=== PATIENT | female | born 1935 | race Caucasian/White ===

== ENCOUNTER 2016-10-13 12:50 | Emergency (ER) | payer MEDICARE, OTHER ==
[2016-10-13] MEDS ORDERED: SUBLIMAZE 100 MCG/2 ML IV ONE ×2 (13:14→13:44)
[2016-10-13] MEDS ORDERED: SUBLIMAZE 100 MCG/2 ML ONE ×2 (13:18→13:47)
--- NOTE | 2016-10-13 13:20 | ERPHSYRPT ---
- History of Present Illness Time Seen by Provider: 10/13/16 13:11 Source: patient Patient Subjective Stated Complaint: PT STATES SHE FELL AT WORK AND INJURED HER LEFT SHOULDER DENIES HITTING HER HEAD COMPLAINS OF LEFT SHOUDLER PAIN Triage Nursing Assessment: PT ALERT WARM AND DRY RESP EASY NON LABORED PULSES NOTED TO LEFT EXTREMITY POOR ROM IN LEFT EXTREMITY. Physician History: CC: left shoulder injury Hx: Patient was working at [employer] this AM and slipped and fell. She hurt left shoulder. No other injuries. No head injury. No neck or back pain. No leg injury. She has moderately severe pain in the left shoulder. Last ate breakfast at 7AM and cappachino at 11AM. Occurred: just prior to arrival Extremities Pain Location: shoulder: left Allergies/Adverse Reactions: Sulfa (Sulfonamide Antibiotics) [Sulfa(Sulfonamide Antibiotics)] Allergy ( Unknown, Verified 05/11/12 14:19) Home Medications: Lisinopril 20 mg PO DAILY 03/19/14 [History] Hx Tetanus, Diphtheria Vaccination/Date Given: Yes Hx Influenza Vaccination/Date Given: No Hx Pneumococcal Vaccination/Date Given: No Immunizations Up to Date: Yes - Review of Systems Constitutional: No Symptoms Eyes: No Symptoms Ears, Nose, & Throat: No Symptoms Respiratory: No Dyspnea Cardiac: No Chest Pain Abdominal/Gastrointestinal: No Abdominal Pain Musculoskeletal: Injury (left shoulder), No Back Pain, No Neck Pain Skin: No Rash Neurological: No Focal Weakness, No Headache, No Parasthesia All Other Systems: Reviewed and Negative - Past Medical History Pertinent Past Medical History: No Neurological History: No Pertinent History ENT History: Cataracts Cardiac History: No Pertinent History, Hypertension Respiratory History: No Pertinent History Endocrine Medical History: No Pertinent History Musculoskeletal History: No Pertinent History GI Medical History: No Pertinent History History: No Pertinent History Psycho-Social History: No Pertinent History Female Reproductive Disorders: Other Other Medical History: D&C 1960's after a childbirth,issa. cataract - Past Surgical History Past Surgical History: Yes Neuro Surgical History: No Pertinent History Cardiac: No Pertinent History Respiratory: No Pertinent History Gastrointestinal: No Pertinent History Genitourinary: No Pertinent History Musculoskeletal: No Pertinent History Female Surgical History: No Pertinent History Other Surgical History: D&C, normal childbirth x two - Social History Smoking Status: Never smoker Exposure to second hand smoke: No Drug Use: none Patient Lives Alone: No - Female History Hx Last Menstrual Period: N/A - Nursing Vital Signs Nursing Vital Signs: Initial Vital Signs Temperature 97.4 F Temperature Source Oral Pulse Rate 83 Respiratory Rate 18 Blood Pressure [] 140/71 Pain Intensity 7 - Physical Exam General Appearance: alert Eyes, Ears, Nose, Throat Exam: moist mucous membranes Neck Exam: normal inspection, non-tender, supple Cardiovascular/Respiratory Exam: chest non-tender, normal breath sounds, regular rate/rhythm Abdominal Exam: non-tender, soft Back Exam: normal inspection, No vertebral tenderness Shoulder Exam: asymmetry, bone tenderness (left), limited ROM Elbow/Forearm Exam: normal inspection, non-tender, no evidence of injury Wrist Exam: normal inspection, non-tender, no evidence of injury Hand Exam: normal inspection, non-tender, no evidence of injury Neuro/Tendon Exam: normal sensation, normal motor functions Mental Status Exam: alert, oriented x 3, cooperative Skin Exam: warm, dry, No rash SpO2 Interpretation: normal SpO2: 95 Oxygen Delivery: Room Air Procedures - Joint Reduction Timeout: Performed Joint Reduction Site: Left, shoulder Conscious Sedation: Yes Reduction Attempts: 1 Pre-Procedure Neurovascular Exam: neurovascular intact, well perfused Post Procedure Neurovascular Exam: neurovascular intact Post Joint Reduction Film: fracture seen (well reduced) - Procedural Sedation Indication: joint reduction Preparation: consent signed, capnographry, iv access, previous anesthia/ sedation without complications, constant attendance, supervisor pipeline, oxygen, procedure explained, pulse oximeter, suction (available) Sedation Parenteral: Propofol (Diprovan), Ketamine Response during procedure: light sedation, handled secretions adequately, maintained airway well, oxygenation stable, vital signs stable Post-Procedure Response: return to baseline mental status - Course Nursing assessment & vital signs reviewed: Yes - Radiology Exams left shoulder X-ray Interpretation: Discussed w/ radiologist ([id number] with humeral head fracture fragment.) left shoulder post reduction X-ray Interpretation: Discussed w/ radiologist (shoulder realigned and fracture fragment in good position) Ordered Tests: Active Orders 24 hr Category Date Time Status Cold Application STAT Care 10/13/16 13:15 Active IV Insertion STAT Care 10/13/16 13:14 Active NPO (ED) STAT Care 10/13/16 13:14 Active SHOULDER Stat Exams 10/13/16 13:15 Completed SHOULDER Stat Exams 10/13/16 14:22 Completed Medication Summary Discontinued Medications Generic Name Dose Route Start Last Admin Trade Name Freq PRN Reason Stop Dose Admin Fentanyl Citrate 25 mcg 10/13/16 13:14 10/13/16 13:24 Sublimaze 100 Mcg/2 Ml IV 10/13/16 13:15 25 mcg STAT ONE Administration Fentanyl Citrate Confirm 10/13/16 13:18 Sublimaze 100 Mcg/2 Ml Administered 10/13/16 13:19 Dose 100 mcg .ROUTE .STK-MED ONE Fentanyl Citrate 25 mcg 10/13/16 13:44 10/13/16 13:54 Sublimaze 100 Mcg/2 Ml IV 10/13/16 13:45 25 mcg STAT ONE Administration Fentanyl Citrate Confirm 10/13/16 13:47 Sublimaze 100 Mcg/2 Ml Administered 10/13/16 13:48 Dose 100 mcg .ROUTE .STK-MED ONE Sodium Chloride Confirm 10/13/16 14:23 Sodium Chloride 0.9% 1000 Ml Administered 10/13/16 14:24 Dose 1,000 mls @ ud .ROUTE .STK-MED ONE - Progress Progress Note: 10/13/16 14:10 Pt and family requested Dr Bourne. Called Dr Bourne and he advised ok to attempt reduction and if successful office follow up. Discussed risks and benefits with pt and will proceed with sedation and reduction attempt. 10/13/16 15:24 Shoulder reduced with moderate sedation. Immobilizer applied. Good radial pulse and neurovascular status. Spoke to Dr Bourne who will see tomorrow at 3PM. Instr given. - Departure Time of Disposition: 15:26 Departure Disposition: Home Clinical Impression: avulsion fracture left humeral head Dislocation of left shoulder joint Qualifiers: Encounter type: initial encounter Qualified Code(s): S43.005A - Unspecified dislocation of left shoulder joint, initial encounter Condition: Stable Critical Care Time: No Referrals: HAZEL BOURNE [NON-STAFF PHY W/O PRIVILEGES] - Instructions: Shoulder Dislocation, Moderate Sedation Additional Instructions: Ice packs off and on. Left shoulder immobilizer. Saty with family and no driving. See Dr Basurto tomorrow at 3PM. Rx norco. Prescriptions: Hydrocodone Bit/Acetaminophen [Guild 5-325 Tablet] 1 each PO Q6H PRN PRN #20 tablet PRN Reason: Pain
--- NOTE | 2016-10-13 13:54 | XRAY ---
Indication: Pain following fall. Comparison: None 3 views of the left shoulder demonstrates anterior inferior humeral dislocation with displaced humeral head fracture fragment. Incidental osteopenia, mild AC degenerative arthropathy, and left lung calcified granulomas.
[2016-10-13] MEDS ORDERED: Ketamine HCl 50 MG/ML IJ ONE (14:00)
[2016-10-13] MEDS ORDERED: DIPRIVAN 200 MG/20 ML IV ONE (14:00)
[2016-10-13] MEDS ORDERED: Sodium Chloride 0.9% 1000 ML 1,000 ML ONE (14:23)
--- NOTE | 2016-10-13 14:55 | XRAY ---
Indication: Post reduction. 3 views of the left shoulder demonstrates successful reduction of the previous humeral head dislocation. Also improved humeral head fracture apposition/alignment now appearing nondisplaced. Comment: Study was reviewed with the ordering clinician.
[2016-10-13 15:03] VITALS: BP 140/71; PULSE 83
[2016-10-13 15:29] VITALS: O2SAT 95
== END 2016-10-13 15:37 | disposition home or self-care (01) ==
LOC: ED 12:50
PROC: 0RSKXZZ Reposition Left Shoulder Joint, External Approach (ICD-10-PCS; principal; 2016-10-13)
DX: S43.005A Unspecified dislocation of left shoulder joint, initial encounter (principal); I10 Essential (primary) hypertension; W01.0XXA Fall on same level from slipping, tripping and stumbling without subsequent striking against object, initial encounter; Y92.512 Supermarket, store or market as the place of occurrence of the external cause; Y99.0 Civilian activity done for income or pay
CPT/HCPCS: 23650; 36000; 73030; 96360; 96376; 99283; 99285; J2704; J3010; L3650

== ENCOUNTER 2020-03-17 17:21 | Emergency (ER) | payer MEDICARE, OTHER ==
--- NOTE | 2020-03-17 17:26 | ERPHSYRPT ---
- History of Present Illness Time Seen by Provider: 03/17/20 17:26 Historian: patient, family Exam Limitations: no limitations Physician History: Is an 84-year-old white female who has had a 4 to 5-day history of constipation. It is not unusual to have 3 days of constipation. However this is a longer than usual. Today, she had a bowel movement and there was some bright red blood present. It is been 8 years since her last colonoscopy. Patient did have a small vomitus today earlier. She does not feel nauseated at this time. She does feel slightly bloated. She does have some mild pain in the suprapubic region. Patient denies chest pain and she denies shortness of breath. Timing/Duration: day(s) (4 to 5 days), gradual onset Quality: cramping Abdominal Pain Onset Location: suprapubic Pain Radiation: no radiation Severity of Pain-Max: mild Severity of Pain-Current: mild Modifying Factors: Improves With: nothing Associated Symptoms: nausea, vomiting, No chest pain, No diarrhea, No shortness of breath Previous symptoms: no prior history Allergies/Adverse Reactions: naproxen Allergy (Severe, Verified 03/17/20 17:43) Sulfa (Sulfonamide Antibiotics) [Sulfa(Sulfonamide Antibiotics)] Allergy (Severe, Verified 03/17/20 17:43) Home Medications: lisinopriL [Lisinopril] 20 mg PO DAILY 03/19/14 [History] Alendronate Sodium 70 mg [Fosamax 70 MG] 70 mg PO WEEKLY 03/17/20 [History] Hx Tetanus, Diphtheria Vaccination/Date Given: Yes Hx Influenza Vaccination/Date Given: No Hx Pneumococcal Vaccination/Date Given: No Travel Risk - International Travel Have you traveled outside of the country in past 3 weeks: No - Coronavirus Screening Are you exhibiting any of the following symptoms?: No Close contact with a COVID-19 positive Pt in past 14-21 Days: No - Review of Systems Constitutional: No Symptoms Eyes: No Symptoms Ears, Nose, & Throat: No Symptoms Respiratory: No Symptoms Cardiac: No Symptoms Abdominal/Gastrointestinal: Abdominal Pain (Supra pubic), Nausea, Vomiting Genitourinary Symptoms: No Symptoms Musculoskeletal: No Symptoms Skin: No Symptoms Neurological: No Symptoms Psychological: No Symptoms Endocrine: No Symptoms Hematologic/Lymphatic: No Symptoms Immunological/Allergic: No Symptoms All Other Systems: Reviewed and Negative - Past Medical History Pertinent Past Medical History: No Neurological History: No Pertinent History ENT History: Cataracts Cardiac History: No Pertinent History, Hypertension Respiratory History: No Pertinent History Endocrine Medical History: No Pertinent History Musculoskeletal History: No Pertinent History GI Medical History: No Pertinent History History: No Pertinent History Psycho-Social History: No Pertinent History Female Reproductive Disorders: Other Other Medical History: D&C 1960's after a childbirth,issa. cataract - Past Surgical History Past Surgical History: Yes Neuro Surgical History: No Pertinent History Cardiac: No Pertinent History Respiratory: No Pertinent History Gastrointestinal: No Pertinent History Genitourinary: No Pertinent History Musculoskeletal: No Pertinent History Female Surgical History: No Pertinent History Other Surgical History: D&C, normal childbirth x two - Social History Smoking Status: Never smoker Exposure to second hand smoke: No Drug Use: none Patient Lives Alone: No - Nursing Vital Signs Nursing Vital Signs: Initial Vital Signs Temperature 98.5 F 03/17/20 17:31 Pulse Rate 121 H 03/17/20 17:31 Blood Pressure 136/90 03/17/20 17:31 O2 Sat by Pulse Oximetry 97 03/17/20 17:31 Pain Scale Pain Intensity 5 - Physical Exam General Appearance: no apparent distress, alert, anxiety Eye Exam: PERRL/EOMI, eyes nml inspection Ears, Nose, Throat Exam: normal ENT inspection, moist mucous membranes Neck Exam: normal inspection, non-tender, supple, full range of motion Respiratory Exam: normal breath sounds, lungs clear, airway intact, No chest tenderness, No respiratory distress Cardiovascular Exam: regular rate/rhythm, normal heart sounds, normal peripheral pulses Gastrointestinal/Abdomen Exam: soft, normal bowel sounds, tenderness (Suprapubic), guarding Pelvic Exam: not done Rectal Exam: not done (Mild) Back Exam: normal inspection, normal range of motion, vertebral tenderness, No CVA tenderness Extremity Exam: normal inspection, normal range of motion, pelvis stable Neurologic Exam: alert, oriented x 3, cooperative, liquor establishment manager II-XII nml as tested, normal mood/affect, nml cerebellar function, nml station & gait, sensation nml Skin Exam: normal color, warm, dry Lymphatic Exam: No adenopathy SpO2 Interpretation: normal (Educated) O2 Delivery: Room Air - Course Nursing assessment & vital signs reviewed: Yes Ordered Tests: Active Orders 24 hr Category Date Time Status IV Insertion STAT Care 03/17/20 17:55 Active ABDOMEN AND PELVIS W/0 CONTRAS [CT] Stat Exams 03/17/20 17:57 Taken AMYLASE Stat Lab 03/17/20 18:11 Completed CBC W DIFF Stat Lab 03/17/20 18:11 Completed CMP Stat Lab 03/17/20 18:11 Completed LIPASE Stat Lab 03/17/20 18:11 Completed Lactic Acid Stat Lab 03/17/20 17:56 Completed UA W/RFX UR CULTURE Stat Lab 03/17/20 18:14 Completed Medication Summary Generic Name Dose Route Start Last Admin Trade Name Freq PRN Reason Stop Dose Admin Sodium Chloride 1,000 mls @ 100 mls/hr 03/17/20 18:00 03/17/20 18:01 Sodium Chloride 0.9% 1000 Ml IV 04/16/20 17:59 100 mls/hr .Q10H TOBY Administration Discontinued Medications Generic Name Dose Route Start Last Admin Trade Name Freq PRN Reason Stop Dose Admin Hydromorphone HCl 0.5 mg 03/17/20 19:01 Hydromorphone 1 Mg/Ml Ampule IV 03/17/20 19:02 STAT ONE Levofloxacin 500 mg 03/17/20 19:02 Levofloxacin 500 Mg Tablet PO 03/17/20 19:03 STAT ONE Metronidazole 500 mg 03/17/20 19:02 Flagyl 500 Mg PO 03/17/20 19:03 STAT ONE Ondansetron HCl 4 mg 03/17/20 19:01 Zofran 4 Mg/2 Ml Vial IV 03/17/20 19:02 STAT ONE Lab/Rad Data: Laboratory Result Diagrams 03/17/20 18:11 03/17/20 18:11 Laboratory Results 03/17/20 03/17/20 03/17/20 Range/Units 18:14 18:11 18:11 WBC 21.1 H (4.0-10.5) K/mm3 RBC 4.25 (4.1-5.4) M/mm3 Hgb 13.9 (12.0-16.0) gm/dl Hct 43.5 (35-47) % MCV 102.4 H (78-100) fl MCH 32.7 H (26-32) pg MCHC 32.0 (32-36) g/dl RDW 12.8 (11.5-14.0) % Plt Count 267 (150-450) K/mm3 MPV 10.7 (7.5-11.0) fl Gran % 93.6 H (36.0-66.0) % Eos # (Auto) 0 (0-0.5) Absolute Lymphs (auto) 0.68 L (1.0-4.6) Absolute Monos (auto) 0.68 (0.0-1.3) Lymphocytes % 3.2 L (24.0-44.0) % Monocytes % 3.2 (0.0-12.0) % Eosinophils % 0.0 (0.00-5.0) % Basophils % 0.0 (0.0-0.4) % Absolute Granulocytes 19.68 H (1.4-6.9) Basophils # 0.01 (0-0.4) Sodium 138 (137-145) mmol/L Potassium 4.1 (3.5-5.1) mmol/L Chloride 105 (98-107) mmol/L Carbon Dioxide 25 (22-30) mmol/L Anion Gap 12.2 (5-15) MEQ/L BUN 21 H (7-17) mg/dL Creatinine 0.63 (0.52-1.04) mg/dL Estimated GFR > 60.0 ML/MIN Glucose 172 H (74-106) mg/dL Lactic Acid (0.4-2.0) Calcium 9.3 (8.4-10.2) mg/dL Total Bilirubin 0.60 (0.2-1.3) mg/dL AST 28 (14-36) U/L ALT 17 (0-35) U/L Alkaline Phosphatase 59 (38-126) U/L Serum Total Protein 7.1 (6.3-8.2) g/dL Albumin 4.2 (3.5-5.0) g/dL Amylase 74 (30-110) U/L Lipase 31 (23-300) U/L Urine Color YELLOW (YELLOW) Urine Appearance CLEAR (CLEAR) Urine pH 5.0 (5-6) Ur Specific [place] 1.018 (1.005-1.025) Urine Protein NEGATIVE (Negative) Urine Ketones NEGATIVE (NEGATIVE) Urine Blood SMALL (0-5) Cabrera/ul Urine Nitrite NEGATIVE (NEGATIVE) Urine Bilirubin NEGATIVE (NEGATIVE) Urine Urobilinogen NEGATIVE (0-1) mg/dL Ur Leukocyte Esterase NEGATIVE (NEGATIVE) Urine WBC (Auto) 0-2 (0-5) /HPF Urine RBC (Auto) NONE (0-2) /HPF U Epithel Cells (Auto) RARE (FEW) /HPF Urine Bacteria (Auto) NONE (NEGATIVE) /HPF Urine Mucus (Auto) SLIGHT (NEGATIVE) /HPF Urine Culture Reflexed NO (NO) Urine Glucose NEGATIVE (NEGATIVE) mg/dL 03/17/20 Range/Units 17:56 WBC (4.0-10.5) K/mm3 RBC (4.1-5.4) M/mm3 Hgb (12.0-16.0) gm/dl Hct (35-47) % MCV (78-100) fl MCH (26-32) pg MCHC (32-36) g/dl RDW (11.5-14.0) % Plt Count (150-450) K/mm3 MPV (7.5-11.0) fl Gran % (36.0-66.0) % Eos # (Auto) (0-0.5) Absolute Lymphs (auto) (1.0-4.6) Absolute Monos (auto) (0.0-1.3) Lymphocytes % (24.0-44.0) % Monocytes % (0.0-12.0) % Eosinophils % (0.00-5.0) % Basophils % (0.0-0.4) % Absolute Granulocytes (1.4-6.9) Basophils # (0-0.4) Sodium (137-145) mmol/L Potassium (3.5-5.1) mmol/L Chloride (98-107) mmol/L Carbon Dioxide (22-30) mmol/L Anion Gap (5-15) MEQ/L BUN (7-17) mg/dL Creatinine (0.52-1.04) mg/dL Estimated GFR ML/MIN Glucose (74-106) mg/dL Lactic Acid 2.8 H (0.4-2.0) Calcium (8.4-10.2) mg/dL Total Bilirubin (0.2-1.3) mg/dL AST (14-36) U/L ALT (0-35) U/L Alkaline Phosphatase (38-126) U/L Serum Total Protein (6.3-8.2) g/dL Albumin (3.5-5.0) g/dL Amylase (30-110) U/L Lipase (23-300) U/L Urine Color (YELLOW) Urine Appearance (CLEAR) Urine pH (5-6) Ur Specific [place] (1.005-1.025) Urine Protein (Negative) Urine Ketones (NEGATIVE) Urine Blood (0-5) Cabrera/ul Urine Nitrite (NEGATIVE) Urine Bilirubin (NEGATIVE) Urine Urobilinogen (0-1) mg/dL Ur Leukocyte Esterase (NEGATIVE) Urine WBC (Auto) (0-5) /HPF Urine RBC (Auto) (0-2) /HPF U Epithel Cells (Auto) (FEW) /HPF Urine Bacteria (Auto) (NEGATIVE) /HPF Urine Mucus (Auto) (NEGATIVE) /HPF Urine Culture Reflexed (NO) Urine Glucose (NEGATIVE) mg/dL - Progress Progress: improved Progress Note: 03/17/20 19:07 CAT scan of the abdomen and pelvis shows new distal transverse colon, descending colon and sigmoid wall thickening with stranding favoring colitis. No free air no free fluid. Counseled pt/family regarding: lab results, diagnosis, need for follow-up, mariana savage - Departure Departure Disposition: Home Clinical Impression: Colitis Condition: Stable Critical Care Time: No Referrals: ROMEO LIZARRAGA [Primary Care Provider] - Additional Instructions: Clear liquids for the next 12 to 24 hours. Use your prescription medication as prescribed. Return to the emergency department for worsening symptoms. Follow- up with your primary care physician for referral to gastroenterology. Prescriptions: Ondansetron ODT 4 MG [Zofran Odt 4 mg] 4 mg PO Q6H PRN PRN #10 tab.rapdis PRN Reason: Vomiting Hydrocodone/APAP 5/325 [Hudson 5/325 mg] 1 each PO Q8H PRN PRN #10 tablet MDD 3 PRN Reason: Pain Ciprofloxacin [Cipro 500 MG] 500 mg PO BID #14 tablet Metronidazole 500 mg [Flagyl 500 MG] 500 mg PO TID #21 tablet
[2020-03-17 17:41] VITALS: O2SAT 97
[2020-03-17] MEDS ORDERED: Sodium Chloride 0.9% 1000 ML 1,000 ML ONE (17:59)
[2020-03-17] MEDS ORDERED: Sodium Chloride 0.9% 1000 ML 1,000 ML IV SCH (18:00)
[2020-03-17 18:14] LABS: Absolute Neutrophil Ct (ANC) 19.68 (1.4-6.9); Basophil (Absolute #) 0.01 (0-0.4); Eosinophil (Absolute #) 0 (0-0.5); Hematocrit 43.5 % (35-47); Hemoglobin 13.9 gm/dl (12.0-16.0); Lymphocyte (Absolute #) 0.68 (1.0-4.6); Lymphocytes % 3.2 % (24.0-44.0); Mean Cell Volume 102.4 fl (78-100); Mean Corpuscular Hemoglobin 32.7 pg (26-32); Mean Platelet Volume 10.7 fl (7.5-11.0); Monocyte (Absolute #) 0.68 (0.0-1.3); Monocytes % 3.2 % (0.0-12.0); Neutrophil % 93.6 % (36.0-66.0); Platelet Count 267 K/mm3 (150-450); Red Blood Count 4.25 M/mm3 (4.1-5.4); Red Cell Distribution Width 12.8 % (11.5-14.0); White Blood Count 21.1 K/mm3 (4.0-10.5)
[2020-03-17 18:28] LABS: Appearance CLEAR (CLEAR); Bilirubin NEGATIVE (NEGATIVE); Blood SMALL Ery/ul (0-5); Epithelial Cells RARE /HPF (FEW); Glucose NEGATIVE (NEGATIVE); Ketones NEGATIVE (NEGATIVE); Leukocyte Esterase NEGATIVE (NEGATIVE); Mucus SLIGHT /HPF (NEGATIVE); Nitrite NEGATIVE (NEGATIVE); Protein,Urine Dip NEGATIVE (Negative); Specific Gravity 1.018 (1.005-1.025); Urobilinogen NEGATIVE mg/dL (0-1); WBC 0-2 /HPF (0-5)
[2020-03-17 18:32] LABS: ALBUMIN 4.2 g/dL (3.5-5.0); ALKALINE PHOSPHATASE 59 U/L (38-126); AMYLASE 74 U/L (30-110); ANION GAP 12.2 MEQ/L (5-15); BLOOD UREA NITROGEN 21 mg/dL (7-17); CHLORIDE 105 mmol/L (98-107); Calcium 9.3 mg/dL (8.4-10.2); Carbon Dioxide 25 mmol/L (22-30); Creatinine 1 0.63 mg/dL (0.52-1.04); Glucose 172 mg/dL (74-106); LIPASE 31 U/L (23-300); Potassium 4.1 mmol/L (3.5-5.1); SGOT/AST 28 U/L (14-36); SGPT/ALT 17 U/L (0-35); SODIUM 138 mmol/L (137-145); Total Protein 7.1 g/dL (6.3-8.2)
[2020-03-17] MEDS ORDERED: Hydromorphone 1 mg/ml Ampule IV ONE (19:01)
[2020-03-17] MEDS ORDERED: Zofran 4 MG/2 ML VIAL IV ONE (19:01)
[2020-03-17] MEDS ORDERED: Flagyl 500 MG PO ONE (19:02)
[2020-03-17] MEDS ORDERED: Levofloxacin 500 MG Tablet PO ONE (19:02)
[2020-03-17] MEDS ORDERED: Levofloxacin 500 MG Tablet ONE (19:06)
[2020-03-17] MEDS ORDERED: Zofran 4 MG/2 ML VIAL ONE (19:06)
[2020-03-17] MEDS ORDERED: Flagyl 500 MG ONE (19:07)
[2020-03-17] MEDS ORDERED: Hydromorphone 1 mg/ml Ampule ONE (19:07)
[2020-03-17 20:11] VITALS: BP 131/73; PULSE 106
--- NOTE | 2020-03-18 08:42 | XRAY ---
Indication: Abdomen pain, nausea, and blood in stools. Multiple contiguous axial images obtained through the abdomen and pelvis without contrast as ordered. Comparison: January 18, 2010. Lung bases again demonstrates small left lower lobe calcified granuloma and minimal bibasilar fibrosis/scarring. No infiltrate or effusion. Heart is not enlarged. Noncontrasted stomach and bowel loops appear nonobstructed. Distal transverse colon, descending colon, and sigmoid colon now demonstrates wall thickening with mild stranding favoring colitis. No free fluid/air. Again scattered sigmoid diverticulosis more than before. There remains a few small gallstones in the dependent portion, largest 8mm. Again incidental small right mid renal cyst, calcified splenic granulomas, and pelvic phleboliths. Remaining liver, pancreas, adrenal glands, kidneys, ureters, bladder, and uterus appear unremarkable for noncontrast exam. There remains mild aortoiliac calcifications without AAA. Osseous structures intact again with mild degenerative changes throughout the spine and minimal double curvature scoliosis. Impression: 1. New transverse, descending, and sigmoid colitis as detailed. 2. Increasing sigmoid diverticulosis. 3. Again incidental cholelithiasis, right renal cyst, and evidence for old granulomatous disease.
== END 2020-03-17 20:28 | disposition home or self-care (01) ==
LOC: ED 17:21
DX: K52.9 Noninfective gastroenteritis and colitis, unspecified (principal)
CPT/HCPCS: 36000; 36415; 74176; 80053; 81001; 82150; 83605; 83690; 85025; 96374; 96375; 99284; J1170; J2405; A9270-GY

== ENCOUNTER 2020-03-19 08:53 | Inpatient (IN) | payer MEDICARE, OTHER ==
[2020-03-19] MEDS ORDERED: Zofran 4 MG/2 ML VIAL IV ONE (09:21)
[2020-03-19] MEDS ORDERED: MORPHINE SULFATE 2 MG INJ IV ONE (09:21)
[2020-03-19] MEDS ORDERED: Sodium Chloride 0.9% 1000 ML 1,000 ML IV STA (09:21)
--- NOTE | 2020-03-19 09:21 | ERPHSYRPT ---
- History of Present Illness Time Seen by Provider: 03/19/20 09:16 Historian: patient, family Patient Subjective Stated Complaint: rectal bleeding Triage Nursing Assessment: pt to ED c/o rectal bleeding since Monday. was seen in ED and told to come back if worsening, states bleeding still and abd "sore and feels bloated." decreased appetite. bowel sounds active, abd tender to palp. reports some diarrhea this am but not before, and no NV. Physician History: This is an 84-year-old white female [facility] She was diagnosed with colitis of the transverse and descending colon. There is no abscess no free air and no free fluid. Patient desired to go home on antibiotics. However, she was told to return to the emergency department if her symptoms have not improved. They have not improved. Patient states they are not worse but there is no improvement she still feels bloated belching and gassy she has had a little bit of bloody diarrhea and she is only tolerating small sips of clear liquids such as bouillon soup and Jell-O. She is had no nausea or vomiting. She has no chest pain and she has not had any shortness of breath. Timing/Duration: day(s) (Several days), other (Condition unchanged) Quality: aching Abdominal Pain Onset Location: LUQ, LLQ Pain Radiation: no radiation Modifying Factors: Improves With: nothing Associated Symptoms: denies symptoms Previous symptoms: same symptoms as today Allergies/Adverse Reactions: naproxen Allergy (Severe, Verified 03/19/20 09:15) Sulfa (Sulfonamide Antibiotics) [Sulfa(Sulfonamide Antibiotics)] Allergy (Severe, Verified 03/19/20 09:15) Home Medications: lisinopriL [Lisinopril] 20 mg PO DAILY 03/19/14 [History] Alendronate Sodium 70 mg [Fosamax 70 MG] 70 mg PO WEEKLY 03/17/20 [History] Hx Tetanus, Diphtheria Vaccination/Date Given: Yes Hx Influenza Vaccination/Date Given: Yes Hx Pneumococcal Vaccination/Date Given: No Travel Risk - International Travel Have you traveled outside of the country in past 3 weeks: No - Coronavirus Screening Are you exhibiting any of the following symptoms?: No Close contact with a COVID-19 positive Pt in past 14-21 Days: No - Review of Systems Constitutional: No Symptoms Eyes: No Symptoms Ears, Nose, & Throat: No Symptoms Respiratory: No Symptoms Cardiac: No Symptoms Abdominal/Gastrointestinal: Abdominal Pain, Diarrhea (Small amount of), No Nausea, No Vomiting Genitourinary Symptoms: No Symptoms ( bloody) Musculoskeletal: No Symptoms Skin: No Symptoms Neurological: No Symptoms Psychological: No Symptoms Endocrine: No Symptoms Hematologic/Lymphatic: No Symptoms Immunological/Allergic: No Symptoms All Other Systems: Reviewed and Negative - Past Medical History Pertinent Past Medical History: No Neurological History: No Pertinent History ENT History: Cataracts Cardiac History: No Pertinent History, Hypertension Respiratory History: No Pertinent History Endocrine Medical History: No Pertinent History Musculoskeletal History: No Pertinent History GI Medical History: No Pertinent History History: No Pertinent History Psycho-Social History: No Pertinent History Female Reproductive Disorders: Other Other Medical History: D&C 1960's after a childbirth,issa. cataract - Past Surgical History Past Surgical History: Yes Neuro Surgical History: No Pertinent History Cardiac: No Pertinent History Respiratory: No Pertinent History Gastrointestinal: No Pertinent History Genitourinary: No Pertinent History Musculoskeletal: No Pertinent History Female Surgical History: No Pertinent History Other Surgical History: D&C, normal childbirth x two - Social History Smoking Status: Never smoker Exposure to second hand smoke: No Drug Use: none Patient Lives Alone: No - Female History Hx Now: No - Nursing Vital Signs Nursing Vital Signs: Initial Vital Signs Temperature 98.3 F 03/19/20 09:07 Pulse Rate 105 H 03/19/20 09:07 Respiratory Rate 18 03/19/20 09:07 Blood Pressure 131/66 03/19/20 09:07 O2 Sat by Pulse Oximetry 95 03/19/20 09:07 Pain Scale Pain Intensity 0 - Physical Exam General Appearance: mild distress, alert, anxiety Eye Exam: PERRL/EOMI, eyes nml inspection Ears, Nose, Throat Exam: normal ENT inspection, moist mucous membranes Neck Exam: normal inspection, non-tender, supple, full range of motion Respiratory Exam: normal breath sounds, lungs clear, airway intact, No chest tenderness, No respiratory distress Cardiovascular Exam: regular rate/rhythm, normal heart sounds (Last), normal peripheral pulses Pelvic Exam: not done Rectal Exam: not done Back Exam: normal inspection, normal range of motion, No CVA tenderness Extremity Exam: normal inspection, normal range of motion, pelvis stable Neurologic Exam: alert, oriented x 3, cooperative, human resources trainer II-XII nml as tested, normal mood/affect, nml cerebellar function, nml station & gait, sensation nml Skin Exam: normal color, warm, dry Lymphatic Exam: No adenopathy SpO2 Interpretation: normal SpO2: 95 O2 Delivery: Room Air - Course Nursing assessment & vital signs reviewed: Yes Ordered Tests: Active Orders 24 hr Category Date Time Status IV Insertion STAT Care 03/19/20 09:21 Active AMYLASE Stat Lab 03/19/20 09:20 Completed CBC W DIFF Stat Lab 03/19/20 09:20 Completed CMP Stat Lab 03/19/20 09:20 Completed LIPASE Stat Lab 03/19/20 09:20 Completed Lactic Acid Stat Lab 03/19/20 09:21 Completed Medication Summary Generic Name Dose Route Start Last Admin Trade Name Freq PRN Reason Stop Dose Admin Sodium Chloride 1,000 mls @ 999 mls/hr 03/19/20 09:21 03/19/20 09:34 Sodium Chloride 0.9% 1000 Ml IV 03/19/20 10:21 999 mls/hr .[id number] STA Administration Discontinued Medications Generic Name Dose Route Start Last Admin Trade Name Freq PRN Reason Stop Dose Admin Sodium Chloride Confirm 03/19/20 09:32 Sodium Chloride 0.9% 1000 Ml Administered 03/19/20 09:33 Dose 1,000 mls @ ud .ROUTE .STK-MED ONE Morphine Sulfate 2 mg 03/19/20 09:21 Morphine Sulfate 2 Mg Inj IV 03/19/20 09:22 STAT ONE Ondansetron HCl 4 mg 03/19/20 09:21 Zofran 4 Mg/2 Ml Vial IV 03/19/20 09:22 STAT ONE Lab/Rad Data: Laboratory Result Diagrams 03/19/20 09:20 03/19/20 09:20 Laboratory Results 03/19/20 03/19/20 03/19/20 Range/Units 09:21 09:20 09:20 WBC 14.5 H (4.0-10.5) K/mm3 RBC 3.97 L (4.1-5.4) M/mm3 Hgb 13.0 (12.0-16.0) gm/dl Hct 41.1 (35-47) % MCV 103.5 H (78-100) fl MCH 32.7 H (26-32) pg MCHC 31.6 L (32-36) g/dl RDW 12.8 (11.5-14.0) % Plt Count 233 (150-450) K/mm3 MPV 10.4 (7.5-11.0) fl Gran % 86.1 H (36.0-66.0) % Eos # (Auto) 0.01 (0-0.5) Absolute Lymphs (auto) 1.10 (1.0-4.6) Absolute Monos (auto) 0.88 (0.0-1.3) Lymphocytes % 7.6 L (24.0-44.0) % Monocytes % 6.1 (0.0-12.0) % Eosinophils % 0.1 (0.00-5.0) % Basophils % 0.1 (0.0-0.4) % Absolute Granulocytes 12.52 H (1.4-6.9) Basophils # 0.02 (0-0.4) Sodium 137 (137-145) mmol/L Potassium 3.6 (3.5-5.1) mmol/L Chloride 104 (98-107) mmol/L Carbon Dioxide 26 (22-30) mmol/L Anion Gap 11.1 (5-15) MEQ/L BUN 13 (7-17) mg/dL Creatinine 0.63 (0.52-1.04) mg/dL Estimated GFR > 60.0 ML/MIN Glucose 100 (74-106) mg/dL Lactic Acid 1.3 (0.4-2.0) Calcium 8.6 (8.4-10.2) mg/dL Total Bilirubin 0.70 (0.2-1.3) mg/dL AST 39 H (14-36) U/L ALT 18 (0-35) U/L Alkaline Phosphatase 58 (38-126) U/L Serum Total Protein 6.7 (6.3-8.2) g/dL Albumin 3.9 (3.5-5.0) g/dL Amylase 51 (30-110) U/L Lipase 21 L (23-300) U/L - Progress Progress: unchanged Progress Note: 03/19/20 10:18 Medical decision making: This patient has colitis. She attempted outpatient treatment. Her symptoms have not improved. I spoke with Dr. Gold's medical student who then reviewed the information with Dr. Gold. Dr. Howard then called back and accepts this patient for admission. Patient's white count has improved from 21,000 down to 14,000 she is afebrile. Her lactic acid is normal. Patient's hemoglobin is also normal. Patient will receive intravenous antibiotics and pain control as well as IV hydration. I did not repeat the CAT scan since it was completed 2 days ago. Discussed with : Piyush Counseled pt/family regarding: lab results, diagnosis - Departure Departure Disposition: In-patient Admission Clinical Impression: Colitis Condition: Stable Critical Care Time: No Referrals: ROMEO LIZARRAGA [Primary Care Provider] -
[2020-03-19] MEDS ORDERED: Sodium Chloride 0.9% 1000 ML 1,000 ML ONE (09:32)
[2020-03-19 09:48] LABS: Absolute Neutrophil Ct (ANC) 12.52 (1.4-6.9); BASOPHIL % 0.1 % (0.0-0.4); Basophil (Absolute #) 0.02 (0-0.4); Eosinophil % 0.1 % (0.00-5.0); Eosinophil (Absolute #) 0.01 (0-0.5); Hematocrit 41.1 % (35-47); Lymphocytes % 7.6 % (24.0-44.0); Mean Cell Volume 103.5 fl (78-100); Mean Corpuscular Hemoglobin 32.7 pg (26-32); Mean Corpuscular Hgb Concent. 31.6 g/dl (32-36); Mean Platelet Volume 10.4 fl (7.5-11.0); Monocyte (Absolute #) 0.88 (0.0-1.3); Monocytes % 6.1 % (0.0-12.0); Neutrophil % 86.1 % (36.0-66.0); Platelet Count 233 K/mm3 (150-450); Red Blood Count 3.97 M/mm3 (4.1-5.4); Red Cell Distribution Width 12.8 % (11.5-14.0); White Blood Count 14.5 K/mm3 (4.0-10.5)
[2020-03-19 10:02] LABS: ALBUMIN 3.9 g/dL (3.5-5.0); ALKALINE PHOSPHATASE 58 U/L (38-126); AMYLASE 51 U/L (30-110); ANION GAP 11.1 MEQ/L (5-15); BLOOD UREA NITROGEN 13 mg/dL (7-17); CHLORIDE 104 mmol/L (98-107); Calcium 8.6 mg/dL (8.4-10.2); Carbon Dioxide 26 mmol/L (22-30); Creatinine 1 0.63 mg/dL (0.52-1.04); Glucose 100 mg/dL (74-106); LIPASE 21 U/L (23-300); Potassium 3.6 mmol/L (3.5-5.1); SGOT/AST 39 U/L (14-36); SGPT/ALT 18 U/L (0-35); SODIUM 137 mmol/L (137-145); Total Protein 6.7 g/dL (6.3-8.2)
[2020-03-19] MEDS ORDERED: MORPHINE SULFATE 2 MG INJ IV PRN (11:38)
[2020-03-19] MEDS ORDERED: TYLENOL 325 MG PO PRN (11:38)
[2020-03-19] MEDS ORDERED: Zofran 4 MG/2 ML VIAL IV PRN (11:38)
[2020-03-19] MEDS: Sodium Chloride 0.9% 1000 ML 1,000 ML IV SCH ×2 (11:46→23:30)
[2020-03-19] MEDS: FLAGYL 500 MG IVPB 500 MG/100 ML BAG IV SCH ×2 (12:13→17:19)
[2020-03-19] MEDS ORDERED: ZOFRAN ODT 4 MG PO PRN (13:45)
[2020-03-19] MEDS ORDERED: NORCO 5/325 MG PO PRN (13:45)
[2020-03-19] MEDS: Levofloxacin 500MG/100ML D5W 500 MG/100 ML BAG IV SCH (14:08)
[2020-03-19] MEDS: solu-MEDROL 125 MG IV SCH (17:16)
[2020-03-20 05:22] LABS: Absolute Neutrophil Ct (ANC) 11.16 (1.4-6.9); BASOPHIL % 0.1 % (0.0-0.4); Basophil (Absolute #) 0.01 (0-0.4); Eosinophil % 0.1 % (0.00-5.0); Eosinophil (Absolute #) 0.01 (0-0.5); Hemoglobin 11.8 gm/dl (12.0-16.0); Lymphocyte (Absolute #) 0.49 (1.0-4.6); Lymphocytes % 4.2 % (24.0-44.0); Mean Cell Volume 103.9 fl (78-100); Mean Corpuscular Hemoglobin 33.1 pg (26-32); Mean Corpuscular Hgb Concent. 31.9 g/dl (32-36); Mean Platelet Volume 10.3 fl (7.5-11.0); Monocytes % 0.8 % (0.0-12.0); Neutrophil % 94.8 % (36.0-66.0); Platelet Count 210 K/mm3 (150-450); Red Blood Count 3.56 M/mm3 (4.1-5.4); Red Cell Distribution Width 12.9 % (11.5-14.0); White Blood Count 11.8 K/mm3 (4.0-10.5)
[2020-03-20 05:42] LABS: ALBUMIN 3.1 g/dL (3.5-5.0); ALKALINE PHOSPHATASE 48 U/L (38-126); ANION GAP 9.2 MEQ/L (5-15); BLOOD UREA NITROGEN 13 mg/dL (7-17); CHLORIDE 110 mmol/L (98-107); Calcium 7.5 mg/dL (8.4-10.2); Carbon Dioxide 23 mmol/L (22-30); Creatinine 1 0.55 mg/dL (0.52-1.04); Glucose 150 mg/dL (74-106); Potassium 3.9 mmol/L (3.5-5.1); SGOT/AST 29 U/L (14-36); SGPT/ALT 15 U/L (0-35); SODIUM 139 mmol/L (137-145); Total Protein 5.8 g/dL (6.3-8.2)
[2020-03-20] MEDS: solu-MEDROL 125 MG IV SCH ×4 (05:57→21:47)
[2020-03-20] MEDS: FLAGYL 500 MG IVPB 500 MG/100 ML BAG IV SCH ×5 (05:57→23:55)
--- NOTE | 2020-03-20 08:57 | HP ---
CHIEF COMPLAINT: Bloody stools. HISTORY OF PRESENT ILLNESS: The patient is an 84 year old white female who began having problems with abdominal bloating and some blood in the stool that was loose and runny at times. She was seen in the emergency room on 03/17/2020 for the same and discharged home with oral medications. The patient reported that over the ensuing two days that she actually became worse having worse bloody stool that she had on the morning of 03/19/2020. The patient represented to the emergency room and was admitted to the hospital for treatment. PAST MEDICAL/SURGICAL HISTORY: Significant for hypertension and osteoporosis. Previously she had cataracts removed. HOME MEDICATIONS: Lisinopril 20 mg a day, Fosamax 30 mg a week. ALLERGIES: NAPROXEN. SULFA. FAMILY HISTORY: Noncontributory. PHYSICAL EXAMINATION: The patient's vital signs on admission showed the temperature 98.3F, pulse 105, respiratory rate 18 and blood pressure 131/66. O2 saturation 95% on room air. HEENT: Normocephalic, atraumatic. Pupils equal round reactive to light. Extraocular movements intact. Oropharynx is pink and moist. NECK: Supple without lymphadenopathy, thyromegaly or JVD. CHEST: Clear to auscultation. HEART: Regular rate and rhythm. ABDOMEN: Soft, minimally tender, slightly bloated. No palpable masses. No rebound or guarding is noted. EXTREMITIES: Without cyanosis, clubbing or edema. NEUROLOGIC: The patient is alert and oriented x3 with no focal deficits noted. LAB DATA AND TESTS: Previously she had a CT scan revealing thickening of the bowel wall of the transverse and descending colon, diverticulosis without diverticulitis and no other pathology was noted. The patient's laboratory studies on 03/19/2020 revealed a BUN of 13, creatinine 0.63, glucose 100. Electrolytes were normal. Liver enzymes were normal. Amylase and lipase were normal. Her CBC showed white count 14,500, hemoglobin 13.0, PLT count 233,000. There appeared to be a left shift with 86.1% granulocytes. ASSESSMENT: A patient with what appears to be colitis episode. She has been admitted for IV antibiotics. She was started on Levaquin and Flagyl in the emergency room. We added Solu-Medrol 125 every six hours for what appears to be inflammatory bowel condition. We will check fecal calprotectin and GI panel for stool pathogens. She was given IV fluids and been instructed to stay on clear liquids until she feels that she is hungry at which time we can hopefully begin advancing her diet. Once the patient seems to be under more stable conditions in regards to her colon, we will consider endoscopic evaluation. The patient did have a previous colonoscopy approximately eight years ago at which time diverticulosis was found and otherwise the colon was normal.
[2020-03-20] MEDS: Sodium Chloride 0.9% 1000 ML 1,000 ML IV SCH ×3 (09:07→21:31)
[2020-03-20] MEDS: Levofloxacin 500MG/100ML D5W 500 MG/100 ML BAG IV SCH (09:07)
[2020-03-20] MEDS: Zestril 20 MG PO SCH ×2 (09:09→09:14)
[2020-03-20 15:41] LABS: Adenovirus F 40/41 NEGATIVE (NEGATIVE); Astrovirus NEGATIVE (NEGATIVE); C. Difficile Organism NEGATIVE (NEGATIVE); Campylobacter NEGATIVE (NEGATIVE); Cryptosporidium NEGATIVE (NEGATIVE); Cyclospora cayentanensis NEGATIVE (NEGATIVE); Entamoeaba histolytica NEGATIVE (NEGATIVE); Enteroaggregative E.coli NEGATIVE (NEGATIVE); Enteropathogenic E.coli NEGATIVE (NEGATIVE); Enterotoxigenic E.coli NEGATIVE (NEGATIVE); Giardia lamblia NEGATIVE (NEGATIVE); Norovirus GI/GII NEGATIVE (NEGATIVE); Plesiomonas shigelloides NEGATIVE (NEGATIVE); Rotavirus A NEGATIVE (NEGATIVE); Salmonella NEGATIVE (NEGATIVE); Sapovirus NEGATIVE (NEGATIVE); Shiga-like toxin prod.E.coli NEGATIVE (NEGATIVE); Vibrio NEGATIVE (NEGATIVE); Vibrio cholerae NEGATIVE (NEGATIVE); Yersinia enterocolitica NEGATIVE (NEGATIVE)
[2020-03-21] MEDS: solu-MEDROL 125 MG IV SCH ×3 (05:52→21:42)
[2020-03-21] MEDS: FLAGYL 500 MG IVPB 500 MG/100 ML BAG IV SCH ×4 (05:52→23:33)
[2020-03-21] MEDS: Sodium Chloride 0.9% 1000 ML 1,000 ML IV SCH ×2 (08:16→20:00)
[2020-03-21] MEDS: Levofloxacin 500MG/100ML D5W 500 MG/100 ML BAG IV SCH (09:09)
[2020-03-21] MEDS: Zestril 20 MG PO SCH (09:09)
[2020-03-21 13:30] LABS: Appearance CLEAR (CLEAR); Bilirubin NEGATIVE (NEGATIVE); Blood NEGATIVE Ery/ul (0-5); Epithelial Cells RARE /HPF (FEW); Glucose 50 mg/dL (NEGATIVE); Hyaline Casts 0-2 /LPF (0-2); Ketones NEGATIVE (NEGATIVE); Leukocyte Esterase SMALL (NEGATIVE); Mucus SLIGHT /HPF (NEGATIVE); Nitrite NEGATIVE (NEGATIVE); Protein,Urine Dip NEGATIVE (Negative); RBC 0-2 /HPF (0-2); Urobilinogen NEGATIVE mg/dL (0-1)
--- NOTE | 2020-03-21 18:03 | PCM.NOTE ---
Date and Time: 03/21/201800 Subjective Assessment: 84 yr old female seen and examined this am. Patient reports that her pain has slightly improved. She continues to have a decreased appetite. She has been attempting clear liquids. She reports that she had really dark urine this am which is not normal for her. She denies any fevers. She reports prior to ad mission she ate kale and strawberries. - Review of Systems Constitutional: Weakness (Patient reports that she hasnt gotten up to walk much), No Fever Eyes: No Symptoms Ears, Nose, & Throat: No Symptoms Respiratory: No Short Of Breath Cardiac: No Chest Pain, No Edema Abdominal/Gastrointestinal: Abdominal Pain, Nausea, Hematochezia (Her last episode was yesterday), No Vomiting, No Diarrhea, No Constipation Genitourinary Symptoms: Other (Dark colored urine) Musculoskeletal: No Symptoms Neurological: No Symptoms Psychological: No Symptoms Objective Exam General Appearance: no apparent distress, alert Neurologic Exam: oriented x 3, cooperative, normal mood/affect, No disoriented, No confusion, No agitation, No depressed mood/affect Skin Exam: normal color, warm, dry, No rash, No jaundice, No pale Eye Exam: eyes nml inspection, No scleral icterus Ears, Nose, Throat Exam: moist mucous membranes Neck Exam: normal inspection Respiratory Exam: normal breath sounds, lungs clear, No respiratory distress, No diminished breath sounds, No wheezing Cardiovascular Exam: regular rate/rhythm, normal heart sounds, No murmur, No friction rub, No gallop, No edema Gastrointestinal/Abdomen Exam: soft, tenderness, distention, No normal bowel sounds (Patient had hyperactive bowel sounds), No mass, No guarding, No rebound Extremity Exam: normal inspection, No pedal edema, No swelling, No tenderness Pelvic Exam: deferred Rectal Exam: deferred OBJECTIVE DATA Vital Signs: Vital Signs - 24 hr Temp Pulse Resp BP Pulse Ox 03/21/20 16:00 98.2 F 57 L 16 120/60 91 L 03/21/20 11:55 98.3 F 57 L 16 123/65 96 03/21/20 07:56 98.2 F 63 16 112/78 96 03/21/20 07:54 98.2 F 63 16 112/78 96 03/21/20 04:05 98.4 F 71 18 116/55 96 07/17/20 23:34 98.1 F 70 18 110/53 98 03/20/20 19:20 98.4 F 74 18 103/54 95 Pain Assessment - Last Documented Pain Intensity 0 Pain Scale Used [facility] Intake and Output: Intake & Output 03/19/20 03/20/20 03/21/20 03/22/20 11:59 11:59 11:59 11:59 Intake Total 3092 3783 600 Output Total 800 1450 500 Balance 2292 2333 100 Weight 54.1 kg 56 kg 61.3 kg Lab Results: Lab Results-Last 24 Hours 03/21/20 Range/Units 13:20 Urine Color YELLOW (YELLOW) Urine Appearance CLEAR (CLEAR) Urine pH 6.0 (5-6) Ur Specific [place] 1.020 (1.005-1.025) Urine Protein NEGATIVE (Negative) Urine Ketones NEGATIVE (NEGATIVE) Urine Blood NEGATIVE (0-5) Cabrera/ul Urine Nitrite NEGATIVE (NEGATIVE) Urine Bilirubin NEGATIVE (NEGATIVE) Urine Urobilinogen NEGATIVE (0-1) mg/dL Ur Leukocyte Esterase SMALL (NEGATIVE) Urine WBC (Auto) 3-5 (0-5) /HPF Urine RBC (Auto) 0-2 (0-2) /HPF U Hyaline Cast (Auto) 0-2 (0-2) /LPF U Epithel Cells (Auto) RARE (FEW) /HPF Urine Bacteria (Auto) NONE (NEGATIVE) /HPF Urine Mucus (Auto) SLIGHT (NEGATIVE) /HPF Urine Culture Reflexed NO (NO) Urine Glucose 50 (NEGATIVE) mg/dL Assessment/Plan (1) Colitis Current Visit: Yes Status: Acute Assessment & Plan: Stools studies have not shown infectious cause however symptoms are more consistent with infectious cause. Will continue on current antibiotics. Patient has not eaten much even with clear liquid diet. She still feels slightly bloated. Will advance diet as tolerated. She did not feel well enough to go home today Code(s): K52.9 - NONINFECTIVE GASTROENTERITIS AND COLITIS, UNSPECIFIED (2) Weakness Current Visit: Yes Status: Acute Assessment & Plan: Patient and patient's daughter were concerned about patient not getting up and walking and that she has become a little weak while in the hospital. She will walk with nursing staff today to help maintain her strength. Code(s): R53.1 - WEAKNESS (3) Anemia Current Visit: Yes Status: Acute Assessment & Plan: Likely related to GI blood loss. Will continue to trend her hgb. Patient may have to go home on iron supplementation Code(s): D64.9 - ANEMIA, UNSPECIFIED (4) Hypertension Current Visit: Yes Status: Acute Assessment & Plan: Will continue on routine home meds Code(s): I10 - ESSENTIAL (PRIMARY) HYPERTENSION
[2020-03-22] MEDS: solu-MEDROL 125 MG IV SCH ×3 (05:13→21:55)
[2020-03-22] MEDS: FLAGYL 500 MG IVPB 500 MG/100 ML BAG IV SCH (05:14)
[2020-03-22 05:53] LABS: Absolute Neutrophil Ct (ANC) 8.07 (1.4-6.9); Basophil (Absolute #) 0 (0-0.4); Eosinophil (Absolute #) 0 (0-0.5); Hematocrit 34.3 % (35-47); Hemoglobin 10.8 gm/dl (12.0-16.0); Lymphocyte (Absolute #) 1.09 (1.0-4.6); Lymphocytes % 11.4 % (24.0-44.0); Mean Cell Volume 103.9 fl (78-100); Mean Corpuscular Hemoglobin 32.7 pg (26-32); Mean Corpuscular Hgb Concent. 31.5 g/dl (32-36); Mean Platelet Volume 10.9 fl (7.5-11.0); Monocyte (Absolute #) 0.41 (0.0-1.3); Monocytes % 4.3 % (0.0-12.0); Neutrophil % 84.3 % (36.0-66.0); Platelet Count 225 K/mm3 (150-450); Red Cell Distribution Width 13.1 % (11.5-14.0); White Blood Count 9.6 K/mm3 (4.0-10.5)
[2020-03-22 06:18] LABS: ALBUMIN 2.6 g/dL (3.5-5.0); ALKALINE PHOSPHATASE 42 U/L (38-126); ANION GAP 6.7 MEQ/L (5-15); BLOOD UREA NITROGEN 18 mg/dL (7-17); CHLORIDE 114 mmol/L (98-107); Calcium 7.1 mg/dL (8.4-10.2); Carbon Dioxide 24 mmol/L (22-30); Creatinine 1 0.62 mg/dL (0.52-1.04); Direct Bilirubin 0.1 mg/dL (0.0-0.4); Glucose 151 mg/dL (74-106); SGOT/AST 21 U/L (14-36); SGPT/ALT 13 U/L (0-35); SODIUM 139 mmol/L (137-145); Total Protein 4.9 g/dL (6.3-8.2)
[2020-03-22] MEDS: Sodium Chloride 0.9% 1000 ML 1,000 ML IV SCH (07:37)
[2020-03-22] MEDS: Zestril 20 MG PO SCH (09:55)
[2020-03-22] MEDS ORDERED: Levofloxacin 250MG Tablet PO SCH (10:00)
[2020-03-22] MEDS ORDERED: Levofloxacin 500 MG Tablet PO SCH ×2 (10:00)
[2020-03-22] MEDS ORDERED: ENOXAPARIN SODIUM SQ SCH (11:00)
[2020-03-22] MEDS: Flagyl 500 MG PO SCH ×3 (13:27→21:55)
--- NOTE | 2020-03-22 14:47 | PCM.NOTE ---
Date and Time: 03/22/20 1445 Subjective Assessment: 84 yr old female seen and examined this am. Patient reports that she has started to eat food and appears to be tolerating well. She still has stomach "discomfort" and bloating but denies pain. She reports that her urine was not dark like yesterday. She still feels weak and reports that she is concerned ab out loss of strength and going home. Patient denies any episodes of vomiting and has not had any more dark stools. - Review of Systems Constitutional: Weakness, No Fever, No Chills Eyes: No Symptoms Ears, Nose, & Throat: No Symptoms Respiratory: No Symptoms Cardiac: No Symptoms Abdominal/Gastrointestinal: Nausea, Appetite Changes, Other (She reports abdominal discomfort), No Vomiting, No Diarrhea, No Constipation, No Hematochezia, No Melena Genitourinary Symptoms: No Symptoms Musculoskeletal: No Symptoms Skin: No Symptoms Neurological: No Symptoms Psychological: No Symptoms Objective Exam General Appearance: no apparent distress Neurologic Exam: alert, oriented x 3, cooperative, normal mood/affect, No disoriented, No confusion, No agitation Skin Exam: normal color, warm, dry Eye Exam: eyes nml inspection, No scleral icterus Ears, Nose, Throat Exam: moist mucous membranes Neck Exam: normal inspection Respiratory Exam: normal breath sounds, lungs clear, No chest tenderness, No respiratory distress, No diminished breath sounds, No wheezing Cardiovascular Exam: regular rate/rhythm, normal heart sounds, No murmur, No friction rub, No gallop, No edema Gastrointestinal/Abdomen Exam: soft, normal bowel sounds, distention, No tenderness, No guarding, No rebound Extremity Exam: normal inspection, No pedal edema, No swelling OBJECTIVE DATA Vital Signs: Vital Signs - 24 hr Temp Pulse Resp BP Pulse Ox 03/22/20 12:00 98.1 F 92 H 16 119/57 97 03/22/20 07:14 98.3 F 56 L 16 122/61 95 03/22/20 04:00 98.2 F 57 L 16 131/59 96 03/21/20 23:49 98.3 F 60 16 143/63 96 03/21/20 19:38 98.1 F 75 18 106/53 97 03/21/20 16:00 98.2 F 57 L 16 120/60 91 L Pain Assessment - Last Documented Pain Intensity 0 Pain Scale Used [facility] Intake and Output: Intake & Output 03/20/20 03/21/20 03/22/20 03/23/20 11:59 11:59 11:59 11:59 Intake Total 3097 0883 406 240 Output Total 830 1450 1200 Balance 2296 6865 6415 240 Weight 56 kg 61.3 kg 61.5 kg Lab Results: Lab Results-Last 24 Hours 03/22/20 03/22/20 Range/Units 05:30 05:30 WBC 9.6 (4.0-10.5) K/mm3 RBC 3.30 L (4.1-5.4) M/mm3 Hgb 10.8 L (12.0-16.0) gm/dl Hct 34.3 L (35-47) % MCV 103.9 H (78-100) fl MCH 32.7 H (26-32) pg MCHC 31.5 L (32-36) g/dl RDW 13.1 (11.5-14.0) % Plt Count 225 (150-450) K/mm3 MPV 10.9 (7.5-11.0) fl Gran % 84.3 H (36.0-66.0) % Eos # (Auto) 0 (0-0.5) Absolute Lymphs (auto) 1.09 (1.0-4.6) Absolute Monos (auto) 0.41 (0.0-1.3) Lymphocytes % 11.4 L (24.0-44.0) % Monocytes % 4.3 (0.0-12.0) % Eosinophils % 0.0 (0.00-5.0) % Basophils % 0.0 (0.0-0.4) % Absolute Granulocytes 8.07 H (1.4-6.9) Basophils # 0 (0-0.4) Sodium 139 (137-145) mmol/L Potassium 5.0 (3.5-5.1) mmol/L Chloride 114 H (98-107) mmol/L Carbon Dioxide 24 (22-30) mmol/L Anion Gap 6.7 (5-15) MEQ/L BUN 18 H (7-17) mg/dL Creatinine 0.62 (0.52-1.04) mg/dL Estimated GFR > 60.0 ML/MIN Glucose 151 H (74-106) mg/dL Calcium 7.1 L (8.4-10.2) mg/dL Total Bilirubin 0.20 (0.2-1.3) mg/dL Direct Bilirubin 0.1 (0.0-0.4) mg/dL AST 21 (14-36) U/L ALT 13 (0-35) U/L Alkaline Phosphatase 42 (38-126) U/L Serum Total Protein 4.9 L (6.3-8.2) g/dL Albumin 2.6 L (3.5-5.0) g/dL Assessment/Plan (1) Colitis Current Visit: Yes Status: Acute Assessment & Plan: Patient's symptoms have improved. She still has decreased appetite but she has transitioned to regular diet. No reported bloody stools for two days. She still did not feel well enough to go home today but possible discharge tomorrow. Code(s): K52.9 - NONINFECTIVE GASTROENTERITIS AND COLITIS, UNSPECIFIED (2) Weakness Current Visit: Yes Status: Acute Assessment & Plan: Patient is concerned that she has become weak while being in the hospital. She reports that she has been walking with nursing staff but she feels it is still not enough. She can be evaluated by PT in am to see if she is strong enough to go home by herself. She did not appear to want home health coming to her home and she does not appear to need actual placement for rehab. Code(s): R53.1 - WEAKNESS (3) Anemia Current Visit: Yes Status: Acute Assessment & Plan: Patient has trended down from 13 to 10. It has trended down more slowly since admission. Will start on some iron Code(s): D64.9 - ANEMIA, UNSPECIFIED (4) Hypertension Current Visit: Yes Status: Acute Assessment & Plan: Will continue routine home meds Code(s): I10 - ESSENTIAL (PRIMARY) HYPERTENSION
[2020-03-23] MEDS: solu-MEDROL 125 MG IV SCH (05:51)
[2020-03-23 07:29] VITALS: BP 128/58; PULSE 61
[2020-03-23 07:53] VITALS: O2SAT 93
[2020-03-23] MEDS ORDERED: FEOSOL 325 MG PO SCH (10:00)
--- NOTE | 2020-03-24 13:07 | DS ---
DISCHARGE DIAGNOSES: 1) COLITIS. 2) HEMATOCHEZIA. HISTORY: The patient is an 84 year old white female who noticed she was having some diarrhea and then blood in the stool and with this becoming heavier. She presented to the emergency room after having low abdominal pain and becoming weaker. The patient was evaluated in the emergency room and admitted with the diagnosis of colitis. HOSPITAL COURSE: The patient was treated initially with IV Levaquin 500 mg daily and Flagyl 500 mg three times a day for the first 24 hours with minimal improvement. When I saw the patient the next day we started her on IV Solu-Medrol after which the patient did show steady improvement to the point where the blood eventually dissipated. We checked a stool pathogen panel which was negative. The patient was felt the need to have endoscopic evaluation but we are awaiting for her abdomen to calm down and take this up as an outpatient. By the morning of 03/23/2020 the patient was feeling much better, taking a regular meal. The abdominal pain had dissipated and she was having no blood in her stool. We sent her home at this time on the prednisone at 30 mg for three days, 20 mg for three days and 10 mg for three days. She was given a prescription for the Levaquin at 500 mg a day for an additional week as well as metronidazole at 250 mg three times a day. The patient will be seen in follow up in the office in one week at which time we will discuss the need for colonoscopic evaluation.
== END 2020-03-23 10:20 | disposition home or self-care (01) | DRG 392 ==
LOC: ED 08:53 → MED SURG 11:30
PROVIDERS: ADMIT Family Medicine; ATTEND Family Medicine
DX: K52.9 Noninfective gastroenteritis and colitis, unspecified (principal); K92.1 Melena; K57.32 Diverticulitis of large intestine without perforation or abscess without bleeding; I10 Essential (primary) hypertension; D64.9 Anemia, unspecified; R10.9 Unspecified abdominal pain; R53.1 Weakness; Z79.899 Other long term (current) drug therapy
CPT/HCPCS: 36000; 36415; 80048; 80053; 80076; 81001; 82150; 83605; 83690; 83993; 85025; 87507; 96360; 96361; 99284; J1650; J1956; J2930; A9270-GY

== ENCOUNTER 2020-04-14 05:45 | Day surgery (SDC) | payer MEDICARE, OTHER ==
[2020-04-14] MEDS ORDERED: Lactated Ringers 1,000 ML IV SCH (06:30)
[2020-04-14] MEDS ORDERED: Ketamine HCl 50 MG/ML ONE (07:16)
[2020-04-14] MEDS ORDERED: DIPRIVAN 200 MG/20 ML IV ONE (07:16)
[2020-04-14 09:28] VITALS: BP 147/85; PULSE 75; O2SAT 97
--- NOTE | 2020-04-14 12:54 | OP ---
SURGERY DATE/TIME: 04/14/2020 0755 PREOPERATIVE DIAGNOSIS: Rectal bleeding and abnormal CT scan with colon wall thickening. POSTOPERATIVE DIAGNOSIS: Segment of colitis and moderate sigmoid diverticulosis. PROCEDURE: Colonoscopy. SURGEON: Dr. Dillon. ANESTHESIA: MAC. Medications given by anesthesia department. HISTORY: The patient is an 85 year old white female who presents now for endoscopic evaluation. She was in the hospital approximately three weeks ago with hematochezia. CT scan showed thickening of the bowel segment of the wall. The patient was felt the need to have endosdcopic evaluation. We had given her a treatment and the bleeding had stopped and the patient was feeling better. At this point the patient is felt to be ready for endoscopic evaluation. She was appraised of the risks of the procedure including the risk of perforation, phlebitis, untoward reaction to medication, bleeding and missed lesions. The patient verbalized her understanding and desired to have the procedure performed. DESCRIPTION OF PROCEDURE: The patient was given the medications by the anesthesia department. She had continuous pulse oximetry, ECG monitoring, intermittent blood pressure monitoring and tidal CO2 monitoring during the examination. She was placed in the left lateral decubitus position. A digital rectal examination was performed and revealed normal anal sphincter tone and no masses. The flexible Olympus pediatric colonoscope was used to intubate the rectum. A view of the colon was developed sequentially to the cecum. Upon insertion and withdrawal was noted approximately a 15 cm segment in length of colitis in what was felt to be descending colon. There was also noted to be moderate sigmoid diverticulosis. No other mucosal lesions being encountered, the scope was removed from the patient who tolerated the procedure well and was sent back to OP recovery in good condition. The prep was noted to be good.
== END 2020-04-14 09:32 | disposition home or self-care (01) ==
LOC: SDC 05:45
PROVIDERS: ATTEND Family Medicine
DX: K52.9 Noninfective gastroenteritis and colitis, unspecified (principal); R93.3 Abnormal findings on diagnostic imaging of other parts of digestive tract; K57.30 Diverticulosis of large intestine without perforation or abscess without bleeding; Z79.899 Other long term (current) drug therapy
CPT/HCPCS: 99100; J2704